=== PATIENT | female | born 1995 | race Caucasian/White ===

== ENCOUNTER 2019-11-13 17:32 | Emergency (ER) | payer MEDICAID, SELFPAY ==
[2019-11-13 17:53] VITALS: BP 112/76; PULSE 97; RESP 18; TEMP 37.1; O2SAT 98; BMI 25.7
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
[2019-11-13] MEDS: ketorolac 30 mg/mL INJ 15 MG IVP (18:20)
[2019-11-13] MEDS: dexamethasone 4 mg/mL INJ 8 MG IVP (18:20)
[2019-11-13] MEDS: diphenhydrAMINE 50 mg/mL SDV 1mL 25 MG IVP (18:20)
[2019-11-13] MEDS: metoclopramide 5 mg/mL SDV 2 mL 10 MG IVP (18:21)
[2019-11-13] MEDS: sodium chloride 0.9% 500 ML 999 ML IV (18:21)
[2019-11-13 18:35] VITALS: PULSE 74; RESP 18; O2SAT 99
[2019-11-13 19:21] VITALS: BP 120/72; PULSE 82; RESP 14; O2SAT 99
[2019-11-13 19:41] VITALS: BP 108/67; PULSE 79; RESP 17; O2SAT 99
--- NOTE | 2019-11-15 12:51 | DCPLANNER ---
manager consumer insights had message to schedule a follow up appointment for patient with Dr. Posey. manager consumer insights called the office of Dr. Posey, gave clinic patients information. manager consumer insights was told that patients information would be printed and given to [facility] for review. Clinic will call patient with appointment information.
--- NOTE | 2019-11-16 11:33 | DCPLANNER ---
Patient has a follow up appointment scheduled with Dr. Posey for , November 25, 2019 at 8:00. Clinic will call patient with appointment information.
--- NOTE | 2019-12-03 10:48 | DCPLANNER ---
Patient had a followup appointment scheduled for 11.25.[address] Posey - patient did attend appointment.
== END 2019-11-13 19:44 | disposition home or self-care (01) ==
PROVIDERS: Emergency Provider Nurse Practitioner Family
DX: G43.909 Migraine, unspecified, not intractable, without status migrainosus (principal)
CPT/HCPCS: 12345; 96374; 96375; 99283; J1100; J1200; J1885; J2765; J7040

== ENCOUNTER → 2019-11-25 08:02 | Outpatient (BNVA) | payer MEDICAID, SELFPAY | PROVIDERS: Referring Provider Nurse Practitioner Family; Visit Provider Nurse Practitioner | DX: G43.909 Migraine, unspecified, not intractable, without status migrainosus (principal) | CPT/HCPCS: 99204 ==